=== PATIENT | female | born 1945 | race American Indian/Alaskan Native ===

== ENCOUNTER 2020-12-10 19:12 | Observation (INO) | payer MEDICARE ==
[2020-12-10] MEDS ORDERED: ASPIRIN EC 325 MG TAB PO ONE (22:01)
--- NOTE | 2020-12-10 22:05 | Emergency Department Report ---
ED Chest Pain HPI - General Chief Complaint: Chest Pain Stated Complaint: SYMPOMTS OF HEART ATTACK Time Seen by Provider: 12/10/20 22:01 Source: patient Mode of arrival: Ambulatory Limitations: No Limitations - History of Present Illness Initial Comments: This is a 75-year-old -Irish female who presents to the emergency department with a complaint of "I am concerned I am having a heart attack." Patient says that she began having some muscle spasms in her mid to low back 2 days ago. These spasms then started radiating up into the left side of her chest. At first she thought it was a gas pain and attempted to treat it with some Zantac unsuccessfully. What brought the patient into the emergency department today is that she began developing some "changes" in her left arm. At first it felt like "something was crawling up my arm, tingling" and then she said it felt like some numbness in the arm. However she also admits to pain in this left arm. She has a past medical history of hypertension and diabetes. She denies any tobacco or illicit drug use. No family history of early heart attack. No recent travel or sick contacts at home. She denies any fever, cough, shortness of breath, lower extremity swelling, nausea, vomiting, but does admit to some recent diaphoresis. Heart Score - HEART Score History: Moderately suspicious EKG: Normal Age: > 65 Risk factors: 1-2 risk factors Troponin: < normal limit HEART Score: 4 - EKG Read Time Time EKG Completed: 19:35 EKG Read Time: 19:40 - Critical Actions Critical Actions: 4-6 pts:12-16.6% risk of adverse cardiac event. Should be admitted ED Review of Systems ROS: Stated complaint: SYMPOMTS OF HEART ATTACK Other details as noted in HPI Comment: All other systems reviewed and negative Constitutional: diaphoresis. denies: chills, fever Eyes: denies: eye pain, vision change ENT: denies: ear pain, throat pain Respiratory: shortness of breath. denies: cough Cardiovascular: chest pain. denies: edema Gastrointestinal: denies: abdominal pain, vomiting Genitourinary: denies: dysuria, discharge Musculoskeletal: denies: joint swelling, arthralgia Skin: denies: rash, lesions Neurological: denies: headache, weakness ED Past Medical Hx - Past Medical History Previous Medical History?: Yes Hx Diabetes: Yes - Surgical History Past Surgical History?: No ED Physical Exam - General Limitations: No Limitations - Other Other exam information: GENERAL: The patient is well-developed well-nourished. HENT: Normocephalic. Atraumatic. Patient has moist mucous membranes. EYES: Extraocular motions are intact. NECK: Supple. Trachea is midline. CHEST/LUNGS: Clear to auscultation. There is no respiratory distress noted. HEART/CARDIOVASCULAR: Regular. There is no tachycardia. There is no murmur. ABDOMEN: Abdomen is soft, nontender. Patient has normal bowel sounds. SKIN: Skin is warm and dry. NEURO: The patient is awake, alert, and oriented. The patient is cooperative. The patient has no focal neurologic deficits. Normal speech. MUSCULOSKELETAL: There is no tenderness or deformity. There is no limitation range of motion. Radial pulse +2/4 and capillary refill less than 2 seconds to the affected left upper extremity. ED Course Vital Signs 12/10/20 21:36 Temperature 98 F Pulse Rate 65 Respiratory 20 Rate Blood Pressure 151/62 [Right] O2 Sat by Pulse 94 Oximetry GEOFF score - Geoff Score Age > 65: (1) Yes Aspirin use within the Past 7 Days: (0) No 3 or more CAD Risk Factors: (0) No 2 or more Angina events in past 24 hrs: (1) Yes Known CAD with more than 50% Stenosis: (0) No Elevated Cardiac Markers: (0) No ST Deviation Greater than 0.5mm: (0) No GEOFF Score: 2 ED Medical Decision Making - Lab Data Result diagrams: 12/10/20 22:36 12/10/20 22:36 Lab Results 12/10/20 12/10/20 12/10/20 Range/Units 22:36 22:36 22:36 WBC 9.0 (4.5-11.0) K/mm3 RBC 4.74 (3.65-5.03) M/mm3 Hgb 13.0 (10.1-14.3) gm/dl Hct 40.2 (30.3-42.9) % MCV 85 (79-97) fl MCH 27 L (28-32) pg MCHC 32 (30-34) % RDW 15.4 H (13.2-15.2) % Plt Count 204 (140-440) K/mm3 Lymph % (Auto) 36.6 H (13.4-35.0) % [place] % (Auto) 6.2 (0.0-7.3) % Eos % (Auto) 2.0 (0.0-4.3) % Baso % (Auto) 0.9 (0.0-1.8) % Lymph # (Auto) 3.3 (1.2-5.4) K/mm3 [place] # (Auto) 0.6 (0.0-0.8) K/mm3 Eos # (Auto) 0.2 (0.0-0.4) K/mm3 Baso # (Auto) 0.1 (0.0-0.1) K/mm3 Seg Neutrophils % 54.3 (40.0-70.0) % Seg Neutrophils # 4.9 (1.8-7.7) K/mm3 Sodium 140 (137-145) mmol/L Potassium 3.8 (3.6-5.0) mmol/L Chloride 99.1 (98-107) mmol/L Carbon Dioxide 36 H (22-30) mmol/L Anion Gap 9 mmol/L BUN 17 (7-17) mg/dL Creatinine 0.7 (0.6-1.2) mg/dL Estimated GFR > 60 ml/min BUN/Creatinine Ratio 24 % Glucose 191 H (65-100) mg/dL Calcium 9.4 (8.4-10.2) mg/dL Total Bilirubin 0.20 (0.1-1.2) mg/dL AST 15 (5-40) units/L ALT 13 (7-56) units/L Alkaline Phosphatase 69 (35-129) units/L Troponin T < 0.010 (0.00-0.029) ng/mL Total Protein 7.8 (6.3-8.2) g/dL Albumin 4.3 (3.9-5) g/dL Albumin/Globulin Ratio 1.2 % TSH 1.780 (0.270-4.200) mlU/mL - EKG Data -: EKG Interpreted by Me EKG shows normal: sinus rhythm, axis, intervals, QRS complexes (LVH), ST-T waves Rate: normal - EKG Data When compared to previous EKG there are: previous EKG unavailable Interpretation: LVH - Radiology Data Radiology results: image reviewed interpreted by me: Chest x-ray does not show any acute process. There are no pleural effusions, obvious pneumonia and there is no pneumothorax. No widened mediastinum. - Medical Decision Making This patient presents to the emergency department with a 2-day history of some left-sided chest pain and radiation down the left arm with left arm paresthesias and numbness. EKG does not have any morphology consistent with ST elevation myocardial infarction. Labs have been mostly unremarkable including CBC, normal thyroid function, CMP and a first negative troponin. The patient has a moderate heart score and continues to have chest discomfort. For this reason the patient will be admitted to the hospital for further evaluation and treatment was accepted for admission by the hospitalist, Dr. Young. Critical Care Time: No Critical care attestation.: If time is entered above; I have spent that time in minutes in the direct care of this critically ill patient, excluding procedure time. ED Disposition Clinical Impression: Acute chest pain, Angina at rest Hypertension Qualifiers: Hypertension type: primary hypertension Qualified Code(s): I10 - Essential (primary) hypertension Disposition: ADMITTED INPATIENT Is pt being admited?: Yes Condition: Serious Instructions: Chest Pain (ED), Hypertension (ED) Time of Disposition: 00:28
--- NOTE | 2020-12-10 22:36 | XRay Report ---
XR chest routine 2V INDICATION / CLINICAL INFORMATION: CP. COMPARISON: None available. FINDINGS: SUPPORT DEVICES: None. HEART /PULMONARY VASCULATURE: No significant abnormality. LUNGS / PLEURA: No significant pulmonary or pleural abnormality. No pneumothorax. ADDITIONAL FINDINGS: No significant additional findings. IMPRESSION: 1. No acute findings. Signer Name: Salinas Anderson MD Signed: 12/10/2020 10:31 PM Workstation Name: [id number]
[2020-12-10 23:16] LABS: Basophils # (Auto) 0.1 K/mm3 (0.0-0.1); Basophils % (Auto) 0.9 % (0.0-1.8); Eosinophils # (Auto) 0.2 K/mm3 (0.0-0.4); Hematocrit 40.2 % (30.3-42.9); Lymphocytes # (Auto) 3.3 K/mm3 (1.2-5.4); Lymphocytes % (Auto) 36.6 % (13.4-35.0); Mean Corpuscular HGB Conc 32 % (30-34); Mean Corpuscular Volume 85 fl (79-97); Monocytes # (Auto) 0.6 K/mm3 (0.0-0.8); Monocytes % (Auto) 6.2 % (0.0-7.3); Platelet Count 204 K/mm3 (140-440); Red Blood Count 4.74 M/mm3 (3.65-5.03); Red Cell Distribution Width 15.4 % (13.2-15.2)
[2020-12-10 23:27] LABS: Alanine Aminotransferase 13 units/L (7-56); Albumin 4.3 g/dL (3.9-5); Blood Urea Nitrogen 17 mg/dL (7-17); Calcium 9.4 mg/dL (8.4-10.2); Hemolysis Index 6
[2020-12-10 23:29] LABS: BUN/Creatinine Ratio 24
[2020-12-11] MEDS ORDERED: ONDANSETRON 4 MG/2 ML INJ IV PRN (00:51)
[2020-12-11] MEDS ORDERED: ACETAMINOPHEN 325 MG TAB PO PRN ×2 (00:51)
[2020-12-11] MEDS ORDERED: MAGNESIUM HYDROXIDE (MOM) ORAL LIQD UDC PO PRN (00:51)
[2020-12-11] MEDS ORDERED: MORPHINE 2 MG/1 ML INJ IV PRN ×2 (00:51)
[2020-12-11] MEDS ORDERED: traMADol 50 MG TAB PO PRN (00:51)
[2020-12-11] MEDS ORDERED: DEXTROSE 50% IN WATER (25GM) 50 ML SYRINGE IV PRN (00:51)
[2020-12-11] MEDS ORDERED: NITROGLYCERIN 0.4 MG TAB SUBL SL PRN (00:51)
--- NOTE | 2020-12-11 01:03 | History and Physical Report ---
History of Present Illness Date of examination: 12/11/20 Date of admission: 12/11/2020 Chief complaint: Chest Pain History of present illness: 75-year-old -Serbian female with known history of diabetes mellitus and hypertension presenting to the emergency room today stating that she has had muscle spasm on her back for the past 2 days. However the spasm later radiated to the left side of her chest. She initially thought it was a gas pain and thereafter took some antacids without any significant improvement. He has had some tingling sensation in the left upper extremity and therefore decided to report to the emergency room for further evaluation. Patient denies any fever or chills, no nausea vomiting and no abdominal pain. She denies any headache or dizziness and no diaphoresis. Patient denies any sick contacts and no recent travel. Denies any contact with anyone with COVID-19. She admits she has not been fully vaccinated against COVID-19. Work-up in the emergency room today including labs, EKG and chest x-ray has not shown any acute findings. Past History Past Medical History: diabetes, hypertension Past Surgical History: No surgical history Social history: no significant social history Family history: no significant family history Medications and Allergies Allergies Allergy/AdvReac Type Severity Reaction Status Date / Time No Known Allergies Allergy Unverified 12/11/20 02:17 Home Medications Medication Instructions Recorded Confirmed Last Taken Type Amlodipine Besylate [Norvasc] 5 mg PO DAILY 12/11/20 12/11/20 Unknown History Escitalopram [Lexapro] 10 mg PO DAILY 12/11/20 12/11/20 Unknown History Rosuvastatin Calcium 5 mg PO DAILY 12/11/20 12/11/20 Unknown History aMILoride/HYDROCHLOROTHIAZIDE 5 mg PO DAILY 12/11/20 12/11/20 Unknown History [Amiloride HCl-Hctz 5-50 mg Tab] glipiZIDE 5 mg PO DAILY 12/11/20 12/11/20 Unknown History lisinopriL [Lisinopril] 20 mg PO DAILY 12/11/20 12/11/20 Unknown History metFORMIN 1,000 mg PO DAILY 12/11/20 12/11/20 Unknown History Active Meds: Active Medications Aspirin (Aspirin Ec 325 Mg Tab) 325 mg PO ONCE ONE Stop: 12/10/20 22:02 Last Admin: 12/10/20 23:07 Dose: 325 mg Documented by: Morphine Sulfate (Morphine 4 Mg/1 Ml Inj) 2 mg IV ONCE ONE Stop: 12/11/20 00:07 Review of Systems Constitutional: no fever, no chills Ears, nose, mouth and throat: no nasal congestion, no sore throat Cardiovascular: chest pain, no palpitations Respiratory: no cough, no shortness of breath Gastrointestinal: no abdominal pain, no nausea, no vomiting, no diarrhea Genitourinary Female: no pelvic pain, no flank pain, no dysuria Musculoskeletal: no neck pain, no low back pain Integumentary: no rash, no pruritis Neurological: no headaches, no confusion Psychiatric: no anxiety, no depression, no confusion Endocrine: no polyphagia, no polydipsia, no polyuria, no nocturia Exam - Constitutional Vitals: Temp Pulse Resp BP Pulse Ox 98 F 65 20 151/62 94 12/10/20 21:36 12/10/20 21:36 12/10/20 21:36 12/10/20 21:36 12/10/20 21:36 General appearance: Present: no acute distress, well-nourished - EENT Eyes: Present: PERRL, EOM intact. Absent: scleral icterus ENT: hearing intact, clear oral mucosa, dentition normal - Neck Neck: Present: supple, normal ROM - Respiratory Respiratory effort: normal Respiratory: bilateral: CTA - Cardiovascular Rhythm: regular Heart Sounds: Present: S1 & S2. Absent: gallop, systolic murmur, diastolic murmur, rub, click - Extremities Extremities: no ischemia, pulses intact, pulses symmetrical, No edema, normal temperature, normal color, Full ROM Peripheral Pulses: within normal limits - Abdominal General gastrointestinal: Present: soft, non-tender, non-distended, normal bowel sounds. Absent: mass - Integumentary Integumentary: Present: clear, warm, dry - Musculoskeletal Musculoskeletal: strength equal bilaterally - Psychiatric Psychiatric: appropriate mood/affect, intact judgment & insight, memory intact, cooperative - Neurologic Neurologic: CNII-XII intact, no focal deficits, moves all extremities HEART Score - HEART Score History: Moderately suspicious EKG: Normal Age: > 65 Risk factors: 1-2 risk factors Troponin: Troponin T < 0.010 ng/mL (0.00-0.029) 12/10/20 22:36 Troponin: < normal limit HEART Score: 4 Results - Labs CBC & Chem 7: 12/10/20 22:36 12/10/20 22:36 Labs: Abnormal lab results 12/10/20 12/10/20 Range/Units 22:36 22:36 MCH 27 L (28-32) pg RDW 15.4 H (13.2-15.2) % Lymph % (Auto) 36.6 H (13.4-35.0) % Carbon Dioxide 36 H (22-30) mmol/L Glucose 191 H (65-100) mg/dL Assessment and Plan - Patient Problems (1) Acute chest pain Current Visit: Yes Status: Acute Plan to address problem: Patient admitted and placed on telemetry. We will check serial cardiac enzymes. Patient will be placed on aspirin, sublingual nitroglycerin and IV morphine as needed for chest pain. Consult placed to cardiology for evaluation. (2) Hypertension Current Visit: Yes Status: Acute Qualifiers: Hypertension type: primary hypertension Qualified Code(s): I10 - Essential (primary) hypertension Plan to address problem: We will resume routine home medications once able to tolerate p.o. intake. Meanwhile we will place on IV hydralazine as needed. Will monitor vital signs closely. (3) Diabetes mellitus Current Visit: Yes Status: Acute Plan to address problem: Patient placed on sliding scale insulin. We will monitor Accu-Cheks closely. (4) DVT prophylaxis Current Visit: Yes Status: Acute Plan to address problem: Patient placed on subcutaneous Lovenox. (5) Full code status Current Visit: Yes Status: Acute Plan to address problem: Patient is full code.
[2020-12-11] MEDS ORDERED: MORPHINE 2 MG/1 ML INJ IV ONE (03:05)
[2020-12-11] MEDS: MORPHINE 4 MG/1 ML INJ IV PRN ×2 (03:35→06:26)
[2020-12-11] MEDS ORDERED: hydrALAZINE 20 MG/1 ML INJ IV PRN (06:10)
[2020-12-11] MEDS ORDERED: INSULIN LISPRO 100 UNIT/ML SUB-Q SCH (07:30)
[2020-12-11] MEDS: INSULIN LISPRO 100 UNIT/ML SUB-Q SCH ×3 (09:01→17:15)
--- NOTE | 2020-12-11 10:31 | Progress Note ---
Assessment and Plan Assessment and plan: (1) Acute chest pain Current Visit: Yes Status: Acute Plan to address problem: Patient admitted and placed on telemetry. We will check serial cardiac enzymes. Patient will be placed on aspirin, sublingual nitroglycerin and IV morphine as needed for chest pain. Consult placed to cardiology for evaluation. (2) Hypertension Current Visit: Yes Status: Acute Qualifiers: Hypertension type: primary hypertension Qualified Code(s): I10 - Essential (primary) hypertension Plan to address problem: We will resume routine home medications once able to tolerate p.o. intake. Meanwhile we will place on IV hydralazine as needed. Will monitor vital signs closely. (3) Diabetes mellitus Current Visit: Yes Status: Acute Plan to address problem: Patient placed on sliding scale insulin. We will monitor Accu-Cheks closely. (4) DVT prophylaxis Current Visit: Yes Status: Acute Plan to address problem: Patient placed on subcutaneous Lovenox. (5) Full code status Current Visit: Yes Status: Acute Plan to address problem: Patient is full code. Hospitalist Physical - Constitutional Vitals: Temp Pulse Resp BP Pulse Ox 98 F 59 L 20 172/73 98 12/10/20 21:36 12/11/20 06:26 12/10/20 21:36 12/11/20 06:26 12/11/20 07:10 General appearance: Present: no acute distress, well-nourished HEART Score - HEART Score EKG: Normal Age: > 65 Risk factors: 1-2 risk factors Troponin: Troponin T < 0.010 ng/mL (0.00-0.029) 12/11/20 08:28 Troponin: < normal limit - Critical Actions Critical Actions: 4-6 pts:12-16.6% risk of adverse cardiac event. Should be admitted Results - Labs CBC & Chem 7: 12/10/20 22:36 12/10/20 22:36 Labs: Laboratory Last Values WBC 9.0 K/mm3 (4.5-11.0) 12/10/20 22:36 RBC 4.74 M/mm3 (3.65-5.03) 12/10/20 22:36 Hgb 13.0 gm/dl (10.1-14.3) 12/10/20 22:36 Hct 40.2 % (30.3-42.9) 12/10/20 22:36 MCV 85 fl (79-97) 12/10/20 22:36 MCH 27 pg (28-32) L 12/10/20 22:36 MCHC 32 % (30-34) 12/10/20 22:36 RDW 15.4 % (13.2-15.2) H 12/10/20 22:36 Plt Count 204 K/mm3 (140-440) 12/10/20 22:36 Lymph % (Auto) 36.6 % (13.4-35.0) H 12/10/20 22:36 [place] % (Auto) 6.2 % (0.0-7.3) 12/10/20 22:36 Eos % (Auto) 2.0 % (0.0-4.3) 12/10/20 22:36 Baso % (Auto) 0.9 % (0.0-1.8) 12/10/20 22:36 Lymph # (Auto) 3.3 K/mm3 (1.2-5.4) 12/10/20 22:36 [place] # (Auto) 0.6 K/mm3 (0.0-0.8) 12/10/20 22:36 Eos # (Auto) 0.2 K/mm3 (0.0-0.4) 12/10/20 22:36 Baso # (Auto) 0.1 K/mm3 (0.0-0.1) 12/10/20 22:36 Seg Neutrophils % 54.3 % (40.0-70.0) 12/10/20 22:36 Seg Neutrophils # 4.9 K/mm3 (1.8-7.7) 12/10/20 22:36 Sodium 140 mmol/L (137-145) 12/10/20 22:36 Potassium 3.8 mmol/L (3.6-5.0) 12/10/20 22:36 Chloride 99.1 mmol/L (98-107) 12/10/20 22:36 Carbon Dioxide 36 mmol/L (22-30) H 12/10/20 22:36 Anion Gap 9 mmol/L 12/10/20 22:36 BUN 17 mg/dL (7-17) 12/10/20 22:36 Creatinine 0.7 mg/dL (0.6-1.2) 12/10/20 22:36 Estimated GFR > 60 ml/min 12/10/20 22:36 BUN/Creatinine Ratio 24 % 12/10/20 22:36 Glucose 191 mg/dL (65-100) H 12/10/20 22:36 POC Glucose 122 mg/dL (70-105) H 12/11/20 08:29 Calcium 9.4 mg/dL (8.4-10.2) 12/10/20 22:36 Total Bilirubin 0.20 mg/dL (0.1-1.2) 12/10/20 22:36 AST 15 units/L (5-40) 12/10/20 22:36 ALT 13 units/L (7-56) 12/10/20 22:36 Alkaline Phosphatase 69 units/L (35-129) 12/10/20 22:36 Troponin T < 0.010 ng/mL (0.00-0.029) 12/11/20 08:28 Total Protein 7.8 g/dL (6.3-8.2) 12/10/20 22:36 Albumin 4.3 g/dL (3.9-5) 12/10/20 22:36 Albumin/Globulin Ratio 1.2 % 12/10/20 22:36 TSH 1.780 mlU/mL (0.270-4.200) 12/10/20 22:36 Quinonez/IV: Voiding Method Toilet Active Medications - Current Medications Current Medications: Generic Name Dose Route Start Last Admin Trade Name Freq PRN Reason Stop Dose Admin Acetaminophen 650 mg 12/11/20 00:51 Acetaminophen 325 Mg Tab PO Q4H PRN Pain MILD(1-3)/Fever >100.5/GIRALDO Aspirin 325 mg 12/12/20 10:00 Aspirin Ec 325 Mg Tab PO QDAY [facility] Dextrose 0 ml 12/11/20 00:51 Dextrose 50% In Water (25gm) 50 Ml Syringe IV Q30MIN PRN Hypoglycemia Protocol Enoxaparin Sodium 40 mg 12/11/20 22:00 Enoxaparin 40 Mg/0.4 Ml Inj SUB-Q QDAY@2200 WEST Protocol Hydralazine HCl 10 mg 12/11/20 06:10 12/11/20 06:26 Hydralazine 20 Mg/1 Ml Inj IV 10 mg Q4H PRN Administration Blood Pressure Insulin Human Lispro 0 unit 12/11/20 07:30 12/11/20 09:01 Insulin Lispro 100 Unit/Ml SUB-Q Not Given ACHS [facility] Protocol Magnesium Hydroxide 30 ml 12/11/20 00:51 Magnesium Hydroxide (Mom) Oral Liqd Udc PO Q4H PRN Constipation Morphine Sulfate 2 mg 12/11/20 00:51 Morphine 2 Mg/1 Ml Inj IV Q4H PRN Pain, Moderate (4-6) Morphine Sulfate 4 mg 12/11/20 00:51 12/11/20 06:26 Morphine 4 Mg/1 Ml Inj IV 4 mg Q4H PRN Administration Pain , Severe (7-10) Morphine Sulfate 2 mg 12/11/20 00:51 Morphine 2 Mg/1 Ml Inj IV Q5MIN PRN Chest Pain unrelieved by NTG Nitroglycerin 0.4 mg 12/11/20 00:51 Nitroglycerin 0.4 Mg Tab Subl SL Q5M PRN Chest Pain Ondansetron HCl 4 mg 12/11/20 00:51 12/11/20 03:36 Ondansetron 4 Mg/2 Ml Inj IV 4 mg Q8H PRN Administration Nausea And Vomiting Sodium Chloride 10 ml 12/11/20 10:00 12/11/20 09:03 Sodium Chloride 0.9% 10 Ml Flush Syringe IV 10 ml BID WEST Administration Sodium Chloride 10 ml 12/11/20 00:51 Sodium Chloride 0.9% 10 Ml Flush Syringe IV PRN PRN LINE FLUSH Sodium Chloride 10 ml 12/11/20 00:51 Sodium Chloride 0.9% 10 Ml Flush Syringe IV PRN PRN LINE FLUSH Tramadol HCl 50 mg 12/11/20 00:51 Tramadol 50 Mg Tab PO Q6H PRN Pain, Moderate (4-6)
[2020-12-11] MEDS ORDERED: REGADENOSON 0.4 MG/5 ML INJ IV ONE (10:42)
--- NOTE | 2020-12-11 12:51 | Discharge Summary ---
Providers - Providers Date of Admission: 12/11/20 00:51 Date of discharge: 12/11/20 Attending physician: SOWMYA GARCIA 12/11/20 Consult to Cardiac Rehabilitation [CONS] Routine Reason For Exam: Phase I 12/11/20 00:52 Consult to Cardiology [CONS] Routine Consulting Provider: SHABANA BRYANT Reason For Exam: CHEST PAIN Consult to Dietitian/Nutrition [CONS] Routine Physician Instructions: Reason For Exam: Reason for Consult: Diet education Primary care physician: ROVERTO PRASAD Hospitalization Reason for admission: Chest pain Condition: Stable Pertinent studies: Chest x-ray; no acute abnormality noted Echocardiogram; LVEF 50 to 55% normal Normal LV wall thickness Procedures: Stress test; negative for reversible ischemia Hospital course: 75-year-old morbidly obese female patient was admitted through emergency room with atypical chest pain of 2 days duration, patient was admitted appropriately being managed serial cardiac enzymes were negative, and EKG did not show any acute ST-T changes. Patient had nuclear stress test which was negative for reversible ischemia normal LV function ejection fraction. Patient's chest pain is probably due to noncardiac causes, probably due to gastroesophageal reflux disease,Patient was given trial of Protonix with mild improvement of the symptoms, cardiology cleared for discharge and follow-up for further evaluation as outpatient if needed. Today patient is comfortable no new complaints vital signs stable ambulatory tolerating oral nutrition Blood pressures are slightly elevated probably due to the stress test, will optimize his BP medications and monitor closely next couple of hours if blood pressures are brought to reasonable level, will be discharged home on appropriate home medications. Patient strongly advised to comply with her medications diet and follow-up visits, she verbalized understanding. Plan of care reviewed with the patient and her nurse Discharge diagnosis; --Atypical chest pain Current Visit: Yes Status: Acute Probably noncardiac ,due to GERD Stress test negative for reversible ischemia Normal LV function --Hypertension Current Visit: Yes Status: Chronic Continue current antihypertensives and as needed medications --History of depression; Current Visit: Yes Status: Chronic Continue antidepressants Follow psychiatry per schedule/as needed. --dyslipidemia; Current Visit: Yes Status: Chronic Continue low-cholesterol diet and , lipid-lowering medications --GERD: Current Visit: Yes Status: Acute Protonix --Type II diabetes mellitus: Current Visit: Yes Status: Acute Accu-Chek sliding scale coverage ADA diet Disposition: 01 HOME / SELF CARE / HOMELESS Final Discharge Diagnosis (Prints w/discharge instructions): Atypical chest pain/probably noncardiac. GERD/probably the cause of chest pain. Hyper tension/moderate control. Type 2 diabetes mellitus/stable. Morbid obesity; BMI 48.4. History of dyslipidemia. History of depression Time spent for discharge: 35 min Core Measure Documentation - Palliative Care Palliative Care/ Comfort Measures: Not Applicable - Core Measures Any of the following diagnoses?: none Exam - Constitutional Vitals: Temp Pulse Resp BP Pulse Ox 98 F 59 L 20 172/73 98 12/10/20 21:36 12/11/20 06:26 12/10/20 21:36 12/11/20 06:12/11/20 07:10 General appearance: Present: no acute distress, well-nourished - EENT Eyes: Present: PERRL, EOM intact - Neck Neck: Present: supple, normal ROM - Respiratory Respiratory effort: normal Respiratory: bilateral: diminished, negative: rales, rhonchi, wheezing - Cardiovascular Rhythm: regular Heart Sounds: Present: S1 & S2 - Extremities Extremities: no ischemia, No edema - Abdominal General gastrointestinal: Present: soft, non-tender, non-distended, normal bowel sounds - Integumentary Integumentary: Present: clear, warm - Musculoskeletal Musculoskeletal: strength equal bilaterally - Psychiatric Psychiatric: appropriate mood/affect, cooperative - Neurologic Neurologic: CNII-XII intact, moves all extremities Plan Activity: advance as tolerated, fall precautions Diet: diabetic, other (Cardiac diet) Additional Instructions: If you have worsening symptoms contact MD or go to the nearest emergency room as needed. Strongly advised to comply with medications diet and follow-up visits. Advised diet modification exercise as tolerated lifestyle changes and weight reduction when you are medically stable. Advised to follow primary care physician per schedule. Advised to see private spring coiling machine setter if you have recurrent symptoms for further evaluation and management as outpatient Follow up with: ROVERTO PRASAD JR, MD [Primary Care Provider] - 3-5 Days Prescriptions: oxyCODONE /ACETAMINOPHEN [Percocet 5/325] 1 tab PO BID PRN #10 tablet PRN Reason: Pain , Severe (7-10) Pantoprazole [Protonix TAB] 20 mg PO DAILY #30 tablet.
[2020-12-11 12:55] VITALS: BP 144/60
[2020-12-11] MEDS ORDERED: amLODIPine 5 MG TAB PO SCH (13:00)
[2020-12-11] MEDS ORDERED: LISINOPRIL 20 MG TAB PO SCH (13:00)
--- NOTE | 2020-12-11 14:22 | Consultation ---
History of Present Illness Consult date: 12/11/20 Requesting physician: ANGÉLICA NEGRO Consult reason: chest pain History of present illness: Patient is 75 y/o female with a PMHx of HTN and DM who presented to the ED with a complaint of muscle spasms in her hips x 2 days. She reports that the spasms were painful and started in her hips. They than traveled to her chest and eventually radiated down her left arm. She reports that the pain in her arm eventually turned to numbness. She denies anything to make the pain worse or better. She denies any fever, chills, SOB, diaphoresis, nausea vomiting. The patient is previously unknown to our practice. Past History Past Medical History: diabetes, hypertension Past Surgical History: hysterectomy Social history: no significant social history Family history: no significant family history Medications and Allergies Allergies Allergy/AdvReac Type Severity Reaction Status Date / Time No Known Allergies Allergy Unverified 12/11/20 02:17 Home Medications Medication Instructions Recorded Confirmed Last Taken Type Amlodipine Besylate [Norvasc] 5 mg PO DAILY 12/11/20 12/11/20 Unknown History Escitalopram [Lexapro] 10 mg PO DAILY 12/11/20 12/11/20 Unknown History Pantoprazole [Protonix TAB] 20 mg PO DAILY #30 tablet. 12/11/20 Unknown Rx Rosuvastatin Calcium 5 mg PO DAILY 12/11/20 12/11/20 Unknown History aMILoride/HYDROCHLOROTHIAZIDE 5 mg PO DAILY 12/11/20 12/11/20 Unknown History [Amiloride HCl-Hctz 5-50 mg Tab] glipiZIDE 5 mg PO DAILY 12/11/20 12/11/20 Unknown History lisinopriL [Lisinopril] 20 mg PO DAILY 12/11/20 12/11/20 Unknown History metFORMIN 1,000 mg PO DAILY 12/11/20 12/11/20 Unknown History Active Meds: Active Medications Acetaminophen (Acetaminophen 325 Mg Tab) 650 mg PO Q4H PRN PRN Reason: Pain MILD(1-3)/Fever >100.5/GIRALDO Amlodipine Besylate (Amlodipine 5 Mg Tab) 5 mg PO DAILY [facility] Amlodipine Besylate (Amlodipine 5 Mg Tab) 10 mg PO ONCE@1300 [facility] Stop: 12/11/20 17:00 Last Admin: 12/11/20 13:29 Dose: 10 mg Documented by: Aspirin (Aspirin Ec 325 Mg Tab) 325 mg PO QDAY [facility] Dextrose (Dextrose 50% In Water (25gm) 50 Ml Syringe) 0 ml IV Q30MIN PRN; Protocol PRN Reason: Hypoglycemia Enoxaparin Sodium (Enoxaparin 40 Mg/0.4 Ml Inj) 40 mg SUB-Q QDAY@2200 [facility]; Protocol Escitalopram Oxalate (Escitalopram 10 Mg Tab) 10 mg PO DAILY [facility] Hydralazine HCl (Hydralazine 20 Mg/1 Ml Inj) 10 mg IV Q4H PRN PRN Reason: Blood Pressure Last Admin: 12/11/20 06:26 Dose: 10 mg Documented by: Insulin Human Lispro (Insulin Lispro 100 Unit/Ml) 0 unit SUB-Q ACHS [facility]; Protocol Last Admin: 12/11/20 11:30 Dose: Not Given Documented by: Lisinopril (Lisinopril 20 Mg Tab) 20 mg PO DAILY [facility] Lisinopril (Lisinopril 20 Mg Tab) 20 mg PO ONCE@1300 [facility] Stop: 12/11/20 17:00 Last Admin: 12/11/20 13:30 Dose: 20 mg Documented by: Magnesium Hydroxide (Magnesium Hydroxide (Mom) Oral Liqd Udc) 30 ml PO Q4H PRN PRN Reason: Constipation Miscellaneous Medication (Amiloride/Hydrochlorothiazide [Amiloride Hcl-Hctz 5-50 Mg Tab]) 5 mg PO DAILY [facility] Morphine Sulfate (Morphine 2 Mg/1 Ml Inj) 2 mg IV Q4H PRN PRN Reason: Pain, Moderate (4-6) Morphine Sulfate (Morphine 4 Mg/1 Ml Inj) 4 mg IV Q4H PRN PRN Reason: Pain , Severe (7-10) Last Admin: 12/11/20 06:26 Dose: 4 mg Documented by: Morphine Sulfate (Morphine 2 Mg/1 Ml Inj) 2 mg IV Q5MIN PRN PRN Reason: Chest Pain unrelieved by NTG Nitroglycerin (Nitroglycerin 0.4 Mg Tab Subl) 0.4 mg SL Q5M PRN PRN Reason: Chest Pain Ondansetron HCl (Ondansetron 4 Mg/2 Ml Inj) 4 mg IV Q8H PRN PRN Reason: Nausea And Vomiting Last Admin: 12/11/20 03:36 Dose: 4 mg Documented by: Sodium Chloride (Sodium Chloride 0.9% 10 Ml Flush Syringe) 10 ml IV BID [facility] Last Admin: 12/11/20 09:03 Dose: 10 ml Documented by: Sodium Chloride (Sodium Chloride 0.9% 10 Ml Flush Syringe) 10 ml IV PRN PRN PRN Reason: LINE FLUSH Tramadol HCl (Tramadol 50 Mg Tab) 50 mg PO Q6H PRN PRN Reason: Pain, Moderate (4-6) Last Admin: 12/11/20 12:42 Dose: 50 mg Documented by: Review of Systems All systems: negative Constitutional: no weight loss, no weight gain, no fever, no chills Ears, nose, mouth and throat: no nasal congestion, no nasal discharge, no sinus pressure, no sinus pain Cardiovascular: chest pain, no orthopnea, no palpitations, no rapid/irregular heart beat, no edema, no syncope Respiratory: no cough, no cough with sputum, no shortness of breath, no dyspnea on exertion Gastrointestinal: no nausea, no vomiting, no diarrhea, no constipation Musculoskeletal: shooting arm pain, arm numbness/tingling Integumentary: no rash, no pruritis, no redness Neurological: no transient paralysis, no paralysis, no weakness Psychiatric: no anxiety, no memory loss Endocrine: no cold intolerance, no heat intolerance Hematologic/Lymphatic: no easy bruising, no easy bleeding Physical Examination Vital Signs Temp Pulse Resp BP Pulse Ox 98 F 65 20 151/62 94 12/10/20 21:36 12/10/20 21:36 12/10/20 21:36 12/10/20 21:36 12/10/20 21:36 General appearance: no acute distress HEENT: Positive: PERRL Neck: Positive: neck supple, trachea midline Cardiac: Positive: Reg Rate and Rhythm Lungs: Positive: clear to auscultation, Normal Breath Sounds Neuro: Positive: Grossly Intact Abdomen: Positive: Soft, Active Bowel Sounds Extremities: Present: upper extr. pulses, lower extr. pulses. Absent: edema Results 12/10/20 22:36 12/10/20 22:36 Cardiac Enzymes 12/10/20 Range/Units 22:36 AST 15 (5-40) units/L CBC 12/10/20 Range/Units 22:36 WBC 9.0 (4.5-11.0) K/mm3 RBC 4.74 (3.65-5.03) M/mm3 Hgb 13.0 (10.1-14.3) gm/dl Hct 40.2 (30.3-42.9) % Plt Count 204 (140-440) K/mm3 Lymph # (Auto) 3.3 (1.2-5.4) K/mm3 [place] # (Auto) 0.6 (0.0-0.8) K/mm3 Eos # (Auto) 0.2 (0.0-0.4) K/mm3 Baso # (Auto) 0.1 (0.0-0.1) K/mm3 Comprehensive Metabolic Panel 12/10/20 Range/Units 22:36 Sodium 140 (137-145) mmol/L Potassium 3.8 (3.6-5.0) mmol/L Chloride 99.1 (98-107) mmol/L Carbon Dioxide 36 H (22-30) mmol/L BUN 17 (7-17) mg/dL Creatinine 0.7 (0.6-1.2) mg/dL Glucose 191 H (65-100) mg/dL Calcium 9.4 (8.4-10.2) mg/dL AST 15 (5-40) units/L ALT 13 (7-56) units/L Alkaline Phosphatase 69 (35-129) units/L Total Protein 7.8 (6.3-8.2) g/dL Albumin 4.3 (3.9-5) g/dL - Imaging and Cardiology Echo: report reviewed EKG: report reviewed, image reviewed EKG interpretations - Telemetry EKG Rhythm: Sinus Rhythm - EKG Sinus rhythms and dysrhythmias: sinus rhythm Assessment and Plan Atypical chest pain HTN * Troponins are negative x 4, EKG sinus with no acute ischemic changes, AMI ruled out * Echo 12/11/2020-EF 50 to 55%, right ventricular systolic function is normal, left atrium is normal in size, right atrium is mildly dilated, trace mitral and pulmonic regurgitation. * Lexiscan MPI stress test was negative * Patient currently on amlodipine 5mg QD and Lisinopril 20mg QD Patient had negative cardiac enzymes x 4, normal echo, and negative stress test. Chest pain is not of cardiac origin. Patient is stable and may be discharged from a cardiac perspective. Patient seen in conjunction with Dr. Quijano who agrees with this plan. Cardiology will sign off on patient. - Patient Problems (1) Acute chest pain Current Visit: Yes Status: Acute (2) Angina at rest Current Visit: Yes Status: Acute (3) DVT prophylaxis Current Visit: Yes Status: Acute (4) Diabetes mellitus Current Visit: Yes Status: Acute (5) Hypertension Current Visit: Yes Status: Acute Qualifiers: Hypertension type: primary hypertension Qualified Code(s): I10 - Essential (primary) hypertension
[2020-12-11] MEDS ORDERED: ENOXAPARIN 40 MG/0.4 ML INJ SUB-Q SCH (22:00)
--- NOTE | 2020-12-12 08:47 | Nuclear Medicine Report ---
APPROVED REPORT Exam: Nuclear Stress Test Indication: Chest pain Ht: 5 ft 4 in Wt: 230 lbs BSA: 2.08 m2 BMI: 39.47 Rhythm: Sinus Bradycardia Stress Test Details Stress Test: Pharmacologic stress testing performed using 0.4 mg of regadenoson per 5 mL given IV over 10 seconds. HR Resting HR: 56 bpm Max HR Achieved: 102 bpm Max Heart Rate (APMHR): 144.714759 bpm Target HR (85% APMHR): 122.324815 bpm % of APMHR: 70.83 Recovery HR: 61 bpm HR response to stress: Normal HR response to stress BP Resting BP: 106/64 mmHg Max BP: 165/76 mmHg Recovery BP: 118/64 mmHg BP response to stress: Normal blood pressure response to stress. ECG Resting ECG: Sinus Bradycardia Stress ECG: Sinus Tachycardia Arrhythmia: None Recovery ECG: Sinus Rhythm Recovery Arrhythmia: None Clinical Reason for Termination: Completed protocol Stress Symptoms: None NM EXAM: Myocardial Perfusion REST/STRESS Imaging Protocol: Rest Tc-99m/Stress Tc-99m 1 day Resting Data Rest SPECT myocardial perfusion imaging was performed in supine position 45 minutes following the intravenous injection of 10 mCi of Tc-99m Myoview. Time of rest injection: 1020 Pharmacologic Stress Pharmacologic stress test was performed by injecting Regadenoson 0.4 mg IV push followed by the intravenous injection of 28 mCi of Tc-99m Myoview. Time of stress injection: 1125 Gated Stress SPECT was performed 30 minutes after stress injection. The images were gated to evaluate regional wall motion and calculate left ventricular ejection fraction. Study Quality Study: excellent Lung Uptake: Normal Study Data TID = 1.06. Perfusion Wall Motion The rest and stress images show normal left ventricular wall motion. Nuclear Conclusion ECG Findings: negative for ischemia Clinical Findings: negative for ischemia Nuclear Findings: negative for ischemia Exercise Capacity: not assessed Left Ventricular Function: normal Normal study. No scintigraphic evidence for myocardial ischemia or scar. Normal left ventricular size and function with no regional wall motion abnormalities.
[2020-12-12] MEDS ORDERED: LISINOPRIL 20 MG TAB PO SCH (10:00)
[2020-12-12] MEDS ORDERED: amLODIPine 5 MG TAB PO SCH (10:00)
[2020-12-12] MEDS ORDERED: ESCITALOPRAM 10 MG TAB PO SCH (10:00)
[2020-12-12] MEDS ORDERED: ASPIRIN EC 325 MG TAB PO SCH (10:00)
--- NOTE | 2020-12-12 11:38 | Electrocardiograph Report ---
[facility] Test Date: 2020-12-11 Test Time: 11:40:03 Pat Name: MEGAN SILVERIO Department: Room: A458 1 Gender: F Acquisitions Analyst: JOAN : 1945 Requested By: ANGÉLICA NEGRO Order Number: [id number] Reading MD: De Quijano Measurements Intervals [place] Rate: 59 P: 66 AR: 201 QRS: 17 QRSD: 85 T: -14 QT: 462 QTc: 457 Interpretive Statements Sinus bradycardia nonspecific st-t Compared to ECG 12/10/2020 19:35:07 Sinus rhythm no longer present Electronically Signed On 12-12-2020 11:38:04 EDT by De Quijano
--- NOTE | 2020-12-12 11:39 | Electrocardiograph Report ---
[facility] [place] Test Date: 2020-12-11 Test Time: 13:49:22 Pat Name: MEGAN SILVERIO Department: Room: A458 1 Gender: F Marine Biologist: EDNA : 1945 Requested By: ANGÉLICA NEGRO Order Number: [id number] Reading MD: De Quijano Measurements Intervals [place] Rate: 61 P: 55 FL: 200 QRS: 5 QRSD: 98 T: -18 QT: 449 QTc: 451 Interpretive Statements Sinus rhythm Left ventricular hypertrophy Compared to ECG 12/11/2020 11:40:03 Left ventricular hypertrophy now present Sinus bradycardia no longer present Electronically Signed On 12-12-2020 11:39:13 EDT by De Quijano
== END 2020-12-11 18:07 | disposition home or self-care (01) ==
LOC: ED 19:12 → 4A 12-11 00:51
PROVIDERS: ADMIT Internal Medicine Geriatric Medicine; ATTEND Internal Medicine
DX: I20.0 Unstable angina (principal); I10 Essential (primary) hypertension; E11.9 Type 2 diabetes mellitus without complications; F32.9 Major depressive disorder, single episode, unspecified; K21.9 Gastro-esophageal reflux disease without esophagitis; E78.5 Hyperlipidemia, unspecified; R07.89 Other chest pain; Z79.82 Long term (current) use of aspirin; Z90.710 Acquired absence of both cervix and uterus; Z79.4 Long term (current) use of insulin; Z86.79 Personal history of other diseases of the circulatory system
CPT/HCPCS: 36415; 71046; 78452; 80053; 82962; 84443; 84484; 85025; 93005; 93017; 93306; 96374; 96375; 96376; 99285; A9502; G0378; J0360; J2270; J2405; J2785